=== PATIENT | female | born 1930 | race African-American/Black ===

== ENCOUNTER 2018-06-29 10:35 | Emergency (ER) | payer BC ==
[~2018-06-29] VITALS: Ht 162.6 cm; Wt 61.7 kg
[~2018-06-29 10:35] MED LIST: ELTROXIN PO; JANTOVEN2.5 M1; JANTOVEN2.5 MG PO; LEVOTHYROXIN0.075 M2
[2018-06-29 10:45] VITALS: BP 153/105; Ht 162.6 cm; Wt 61.7 kg
== END 2018-06-29 13:28 | disposition home or self-care (01) ==
LOC: ED 10:35
DX: S62.102A Fracture of unspecified carpal bone, left wrist, initial encounter for closed fracture (principal); G30.9 Alzheimer's disease, unspecified; Z90.12 Acquired absence of left breast and nipple; W19.XXXA Unspecified fall, initial encounter; Y93.89 Activity, other specified; Y92.89 Other specified places as the place of occurrence of the external cause; Y99.8 Other external cause status
CPT/HCPCS: J1200; J2270; Q0092

== ENCOUNTER 2018-10-04 09:26 | Inpatient (IN) | payer BC ==
[~2018-10-04] VITALS: Ht 162.6 cm; Wt 62.1 kg
[2018-10-04 09:35] VITALS: Ht 162.6 cm; Wt 62.1 kg
[2018-10-04 10:20] LABS: microscopic required? NO
[2018-10-04 10:23] LABS: BASOPHIL % 0.3 % (0-2); PLATELET COUNT 169 x10^3mcL (130-400); RED CELL DISTRIBUTION WIDTH 14.1 % (11.5-14.5)
[2018-10-04 10:38] LABS: CALCIUM 8.9 mg/dL (8.5-10.1); CARBON DIOXIDE 28.2 mmol/L (21-32); CHLORIDE SERUM 104 mmol/L (98-107); CREATININE SERUM 1.1 mg/dL (0.6-1.0); GLUCOSE SERUM 119 mg/dL (74-106); POTASSIUM SERUM 4.2 mmol/L (3.5-5.1); SODIUM SERUM 140 mmol/L (136-145)
[2018-10-04 10:42] LABS: ALBUMIN 3.4 g/dL (3.4-5.0); ALKALINE PHOSPHATASE 77 U/L (46-116); ALT/SGPT 22 U/L (14-59); AST/SGOT 26 U/L (15-37); TOTAL PROTEIN, SERUM 7.6 g/dL (6.4-8.2)
[2018-10-04 11:06] LABS: UA SPECIFIC GRAVITY 1.015 (1.005-1.035); urine erythrocyte NEGATIVE (NEGATIVE)
[2018-10-04 12:43] VITALS: BP 160/88
[2018-10-04 16:55] VITALS: BP 127/64
[2018-10-05 04:27] VITALS: BP 137/63
[2018-10-05 06:05] LABS: BASOPHIL % 0.4 % (0-2); PLATELET COUNT 161 x10^3mcL (130-400); RED CELL DISTRIBUTION WIDTH 14.1 % (11.5-14.5)
[2018-10-05 07:14] LABS: CALCIUM 8.7 mg/dL (8.5-10.1); CARBON DIOXIDE 27.4 mmol/L (21-32); CHLORIDE SERUM 107 mmol/L (98-107); CREATININE SERUM 0.9 mg/dL (0.6-1.0); GLUCOSE SERUM 83 mg/dL (74-106); POTASSIUM SERUM 3.9 mmol/L (3.5-5.1); SODIUM SERUM 139 mmol/L (136-145)
[2018-10-05 08:55] VITALS: BP 106/56
[2018-10-05 12:00] VITALS: BP 128/63
[2018-10-05 12:22] VITALS: BP 128/63
== END 2018-10-05 13:55 | DRG 312 ==
LOC: ED 09:26 → DU 11:48
PROVIDERS: Internal Medicine Pulmonary Disease
DX: R55 Syncope and collapse (principal); I48.2 Chronic atrial fibrillation; F03.90 Unspecified dementia, unspecified severity, without behavioral disturbance, psychotic disturbance, mood disturbance, and anxiety; I10 Essential (primary) hypertension; E03.9 Hypothyroidism, unspecified; Z88.0 Allergy status to penicillin; Z88.5 Allergy status to narcotic agent; Z79.01 Long term (current) use of anticoagulants; Z90.13 Acquired absence of bilateral breasts and nipples; Z86.718 Personal history of other venous thrombosis and embolism; Z68.21 Body mass index [BMI] 21.0-21.9, adult
CPT/HCPCS: 83880; 97112-GP; J2060; J7030; Q0092